=== PATIENT | male | born 1955 | race Caucasian/White ===

== ENCOUNTER 2016-11-20 10:26 | Inpatient (IN) | payer BC, OTHER ==
[~2016-11-20] VITALS: Ht 170.2 cm; Wt 77.1 kg
[2016-11-20] VITALS (16 sets, daily range): BP systolic 124–151; RESP 12–21; TEMP 98–100.6; BMI 26.6
[~2016-11-20 10:26] MED LIST: BUPIVACA/EPI 0.25% PF 30ML NERVEBLOCK ONE
[2016-11-20] MEDS ORDERED: LIDOCAINE 2% SYR 5 ML IV ONE (11:24)
[2016-11-20] MEDS ORDERED: SUCCINYLCHOLINE 20 MG/ML VL IV ONE (11:24)
[2016-11-20] MEDS ORDERED: PROPOFOL 20 ML VIAL IV ONE (11:24)
[2016-11-20] MEDS ORDERED: FENTANYL 100 MCG/2 ML AMP IV ONE (11:24)
[2016-11-20] MEDS ORDERED: ROCURONIUM 50 MG VIAL IV ONE (11:24)
[2016-11-20] MEDS ORDERED: SODIUM CHLORIDE 0.9% 1,000 ML ONE (12:53)
[2016-11-20] MEDS ORDERED: VANCOMYCIN 1,500 MG in SODIUM CHLORIDE 0.9% 250 ML IV ONE (12:55)
[2016-11-20] MEDS ORDERED: CEFAZOLIN 2,000 MG in SODIUM CHLORIDE 0.9% 100 ML IV ONE ×2 (16:10→16:15)
[2016-11-20] MEDS ORDERED: SALINE FLUSH 10 ML FLUSH PRN ×3 (16:10→19:15)
[2016-11-20] MEDS ORDERED: MIDAZOLAM 2 MG/2 ML INJ IV ONE (18:05)
[2016-11-20] MEDS ORDERED: LIDOCAINE 1% BUFFERED 1 ML SYR INTRADERM PRN (18:05)
[2016-11-20] MEDS ORDERED: LACT RINGERS 1,000 ML IV SCH (18:05)
[2016-11-20] MEDS ORDERED: GLYCOPYRROLATE 0.2 MG/ML VIAL IV ONE (18:05)
[2016-11-20] MEDS ORDERED: DILAUDID 1 MG/ML AMP IV PRN (18:10)
[2016-11-20] MEDS ORDERED: MORPHINE 4 MG/ML SYR IV PRN ×2 (18:10→19:15)
[2016-11-20] MEDS ORDERED: OXYCODONE 5 MG TAB PO PRN (18:10)
[2016-11-20] MEDS ORDERED: ONDANSETRON 4 MG VIAL IV PRN (18:10)
[2016-11-20] MEDS ORDERED: MORPHINE 2 MG/ML SYR IV PRN ×2 (18:10→19:15)
[2016-11-20] MEDS ORDERED: MEPERIDINE 25 MG/ML IV PRN (18:10)
[2016-11-20] MEDS ORDERED: ONDANSETRON 4 MG VIAL IV PUSH PRN (19:15)
[2016-11-20] MEDS: SALINE FLUSH 10 ML FLUSH SCH (22:50)
[2016-11-20] MEDS: FAMOTIDINE 20 MG INJ IV SCH (23:07)
[2016-11-20] MEDS: PIPERACIL/TAZO 3.375GM/50ML 50 ML IV SCH (23:15)
[2016-11-21 03:57] VITALS: BP_SYST 125; RESP 18; TEMP 98.4
[2016-11-21] MEDS: SODIUM CHLORIDE 0.9% FLUSH BAG 500 ML IV SCH (05:03)
[2016-11-21] MEDS: PIPERACIL/TAZO 3.375GM/50ML 50 ML IV SCH ×4 (05:39→23:29)
[2016-11-21] MEDS: SALINE FLUSH 10 ML FLUSH SCH ×2 (07:22→20:00)
[2016-11-21 07:49] VITALS: BP_SYST 115; RESP 16; TEMP 97.9
[2016-11-21] MEDS: FAMOTIDINE 20 MG INJ IV SCH ×2 (07:51→19:48)
[2016-11-21] MEDS: ENOXAPARIN 40 MG/0.4 ML SYR SUBQ SCH (07:52)
[2016-11-21] MEDS: DAKIN'S 0.25% 480 ML TOPICAL SCH ×2 (07:53→19:48)
[2016-11-21] MEDS ORDERED: DEXTROSE 50% SYRINGE 50 ML IV PRN (11:10)
[2016-11-21] MEDS ORDERED: GLUCAGON 1 MG VIAL IM PRN (11:10)
[2016-11-21 11:11] VITALS: BP_SYST 134; RESP 16; TEMP 98.3
[2016-11-21 15:20] VITALS: BP_SYST 136; RESP 18; TEMP 98
[2016-11-21 19:31] VITALS: BP_SYST 147; RESP 18; TEMP 98
[2016-11-21 22:40] VITALS: BP_SYST 131; RESP 18; TEMP 99.6
[2016-11-22 03:04] VITALS: BP_SYST 133; RESP 18; TEMP 98.2
[2016-11-22] MEDS: PIPERACIL/TAZO 3.375GM/50ML 50 ML IV SCH ×4 (05:31→23:33)
[2016-11-22] MEDS: SODIUM CHLORIDE 0.9% FLUSH BAG 500 ML IV SCH (05:32)
[2016-11-22 07:31] VITALS: BP_SYST 143; RESP 16; TEMP 98
[2016-11-22] MEDS: FAMOTIDINE 20 MG INJ IV SCH ×2 (08:18→19:36)
[2016-11-22] MEDS: SALINE FLUSH 10 ML FLUSH SCH ×2 (08:18→19:36)
[2016-11-22] MEDS: DAKIN'S 0.25% 480 ML TOPICAL SCH ×2 (08:19→19:36)
[2016-11-22] MEDS: ENOXAPARIN 40 MG/0.4 ML SYR SUBQ SCH (08:19)
[2016-11-22 11:11] VITALS: BP_SYST 157; RESP 18; TEMP 97.8
[2016-11-22] MEDS: D5-1/2-NS W/KCL 20MEQ/L 1,000 ML IV SCH (12:37)
[2016-11-22 15:52] VITALS: BP_SYST 130; RESP 18; TEMP 98
[2016-11-22 20:08] VITALS: BP_SYST 162; RESP 16; TEMP 97.9
[2016-11-22 23:06] VITALS: BP_SYST 139; RESP 18; TEMP 98.4
[2016-11-23 03:35] VITALS: BP_SYST 131; RESP 18; TEMP 98.2
[2016-11-23] MEDS: PIPERACIL/TAZO 3.375GM/50ML 50 ML IV SCH ×3 (04:58→17:27)
[2016-11-23] MEDS: SODIUM CHLORIDE 0.9% FLUSH BAG 500 ML IV SCH (04:59)
[2016-11-23 07:18] VITALS: BP_SYST 155; RESP 16; TEMP 97.9
[2016-11-23] MEDS: DAKIN'S 0.25% 480 ML TOPICAL SCH ×2 (08:41→20:51)
[2016-11-23] MEDS: ENOXAPARIN 40 MG/0.4 ML SYR SUBQ SCH (08:41)
[2016-11-23] MEDS: FAMOTIDINE 20 MG INJ IV SCH ×2 (08:41→20:45)
[2016-11-23] MEDS: SALINE FLUSH 10 ML FLUSH SCH ×2 (08:41→20:46)
[2016-11-23] MEDS: D5-1/2-NS W/KCL 20MEQ/L 1,000 ML IV SCH (08:42)
[2016-11-23 11:34] VITALS: BP_SYST 131; RESP 18; TEMP 97.9
[2016-11-23 15:37] VITALS: BP_SYST 127; RESP 16; TEMP 98.2
[2016-11-23 19:26] VITALS: BP_SYST 149; RESP 16; TEMP 98.7
[2016-11-23 23:09] VITALS: BP_SYST 146; RESP 16; TEMP 98.1
[2016-11-24] MEDS: PIPERACIL/TAZO 3.375GM/50ML 50 ML IV SCH ×3 (00:20→12:13)
[2016-11-24 03:52] VITALS: BP_SYST 150; RESP 16; TEMP 98.1
[2016-11-24] MEDS: SODIUM CHLORIDE 0.9% FLUSH BAG 500 ML IV SCH (06:00)
[2016-11-24] MEDS: D5-1/2-NS W/KCL 20MEQ/L 1,000 ML IV SCH (06:04)
[2016-11-24 07:34] VITALS: BP_SYST 146; RESP 16; TEMP 98.1
[2016-11-24] MEDS: FAMOTIDINE 20 MG INJ IV SCH ×2 (08:58→21:05)
[2016-11-24] MEDS: SALINE FLUSH 10 ML FLUSH SCH ×2 (08:58→21:06)
[2016-11-24] MEDS: ENOXAPARIN 40 MG/0.4 ML SYR SUBQ SCH (08:58)
[2016-11-24] MEDS: DAKIN'S 0.25% 480 ML TOPICAL SCH ×2 (08:59→22:27)
[2016-11-24] MEDS ORDERED: MISSING DOSE XX ONE ×2 (09:25→14:05)
[2016-11-24] MEDS ORDERED: SODIUM CHLORIDE 0.9% 1,000 ML IV SCH (09:40)
[2016-11-24 11:24] VITALS: BP_SYST 144; RESP 16; TEMP 98.5
[2016-11-24] MEDS: METFORMIN XR 500 MG TAB PO SCH ×2 (12:04→21:05)
[2016-11-24] MEDS: LEVOFLOXACIN 750 MG/150 ML 150 ML IV SCH (15:03)
[2016-11-24 15:10] VITALS: BP_SYST 149; RESP 16; TEMP 98.2
[2016-11-24 19:20] VITALS: BP_SYST 148; RESP 16; TEMP 98
[2016-11-24] MEDS ORDERED: LEVEMIR INSULIN SUBQ SCH (21:00)
[2016-11-24 22:55] VITALS: BP_SYST 148; RESP 16; TEMP 98.2
[2016-11-25 03:15] VITALS: BP_SYST 156; RESP 16; TEMP 98.3
[2016-11-25] MEDS: SODIUM CHLORIDE 0.9% FLUSH BAG 500 ML IV SCH (06:00)
[2016-11-25 07:07] VITALS: BP_SYST 148; RESP 16; TEMP 98.1
[2016-11-25] MEDS: SALINE FLUSH 10 ML FLUSH SCH (07:42)
[2016-11-25] MEDS: METFORMIN XR 500 MG TAB PO SCH (07:42)
[2016-11-25] MEDS: FAMOTIDINE 20 MG INJ IV SCH (07:42)
[2016-11-25] MEDS: LEVOFLOXACIN 750 MG/150 ML 150 ML IV SCH (07:42)
[2016-11-25] MEDS: ENOXAPARIN 40 MG/0.4 ML SYR SUBQ SCH (07:43)
[2016-11-25] MEDS: DAKIN'S 0.25% 480 ML TOPICAL SCH (07:43)
[2016-11-25 11:00] VITALS: BP_SYST 148; RESP 16; TEMP 98.1
[2016-11-25 11:54] VITALS: Ht 170.2 cm; Wt 77.1 kg
[2016-11-25] MEDS ORDERED: MISSING DOSE XX ONE (13:25)
[2016-11-26] MEDS ORDERED: LEVOFLOXACIN 750 MG TAB PO SCH (09:00)
== END 2016-11-25 17:00 | disposition home or self-care (01) | DRG 603 ==
LOC: ER 10:26 → SURG 16:12 → EDSTATUS 16:12 → SDS 19:13 → 5THE 20:09
PROVIDERS: ADMIT Surgery; ATTEND Surgery
PROC: 0H96XZX Drainage of Back Skin, External Approach, Diagnostic (ICD-10-PCS; principal; 2016-11-20 18:34)
DX: L02.212 Cutaneous abscess of back [any part, except buttock and flank] (principal); E11.9 Type 2 diabetes mellitus without complications; L03.312 Cellulitis of back [any part except buttock and flank]; Z72.0 Tobacco use
CPT/HCPCS: 36415; 80048; 80053; 82947; 83036; 83605; 85025; 85652; 86141; 87040; 87071; 87075; 87077; 87186